=== PATIENT | female | born 1960 | race Caucasian/White ===

== ENCOUNTER 2022-07-16 13:37 | Outpatient (CLI) | payer BC, SELFPAY | END 2022-07-16 13:38 | disposition home or self-care (01) | LOC: INJ CL 13:37 | PROVIDERS: PCP Nurse Practitioner Family; Visit Provider Family Medicine | DX: M17.11 Unilateral primary osteoarthritis, right knee (principal); M25.561 Pain in right knee | CPT/HCPCS: 64454 ==

== ENCOUNTER 2023-01-07 12:43 | Outpatient (CLI) | payer OTHER, BC, SELFPAY | END 2023-01-07 12:44 | disposition home or self-care (01) | PROVIDERS: PCP Nurse Practitioner Family; Visit Provider Family Medicine | DX: M17.11 Unilateral primary osteoarthritis, right knee (principal); M25.561 Pain in right knee; G89.29 Other chronic pain | CPT/HCPCS: 64624; J2250; J2405; J3010 ==

== ENCOUNTER 2023-01-24 07:14 | Outpatient (CLI) | payer OTHER, BC, SELFPAY | END 2023-01-24 07:15 | disposition home or self-care (01) | LOC: INJ CL 07:14 | PROVIDERS: PCP Nurse Practitioner Family; Visit Provider Family Medicine | DX: M17.12 Unilateral primary osteoarthritis, left knee (principal); M25.562 Pain in left knee | CPT/HCPCS: 64454 ==